=== PATIENT | male | born 1990 | race Caucasian/White ===

== ENCOUNTER 2019-02-15 12:06 | Emergency (ER) | payer BC ==
[~2019-02-15] VITALS: Ht 165.1 cm; Wt 65.9 kg
[2019-02-15 12:28] VITALS: BP 133/78; Ht 165.1 cm; Wt 65.9 kg
== END 2019-02-15 12:45 | disposition left against medical advice (07) ==
LOC: D.ER 12:06
DX: S99.929A Unspecified injury of unspecified foot, initial encounter (principal)